=== PATIENT | male | born 1995 | race Native Hawaiian/Other Pacific Islander ===

== ENCOUNTER 2018-07-01 11:28 | Emergency (ER) | payer OTHER ==
[~2018-07-01] VITALS: Ht 180.3 cm; Wt 74.8 kg
[2018-07-01 13:41] LABS: PLATELET COUNT 259 K/uL (142-355)
[2018-07-01 13:53] LABS: POTASSIUM 4.5 mmol/L (3.6-5.2)
[2018-07-01 21:31] VITALS: BP 119/62; TEMP 99.5
== END 2018-07-01 21:31 | disposition other institution (70) ==
LOC: ED 11:28
DX: R45.851 Suicidal ideations (principal); F19.10 Other psychoactive substance abuse, uncomplicated; F32.89 Other specified depressive episodes; Z04.6 Encounter for general psychiatric examination, requested by authority
CPT/HCPCS: 36415; 80053; 80307; 80320; 80329; 81000; 85027; 93005; 99285; J2060

== ENCOUNTER 2018-07-04 14:49 | Emergency (ER) | payer OTHER ==
[~2018-07-04] VITALS: Ht 180.3 cm; Wt 74.8 kg
[2018-07-04 15:53] LABS: PLATELET COUNT 259 K/uL (142-355)
[2018-07-04 16:01] LABS: POTASSIUM 4.5 mmol/L (3.6-5.2)
[2018-07-04] MEDS ORDERED: CEPH500C20 PO (17:49)
[2018-07-05 21:39] VITALS: TEMP 98.1
[2018-07-06 09:15] VITALS: BP 121/64
== END 2018-07-06 12:00 | disposition other institution (70) ==
LOC: ED 14:49
DX: R45.851 Suicidal ideations (principal)
CPT/HCPCS: 36415; 80053; 80307; 80320; 80329; 81000; 85027; 93005; 99285

== ENCOUNTER 2019-02-26 20:00 | Emergency (ER) | payer OTHER ==
[~2019-02-26] VITALS: Ht 180.3 cm; Wt 74.8 kg
[~2019-02-26 20:00] MED LIST: CEPH500C20 PO
[2019-02-26 23:05] VITALS: BP 105/65; TEMP 98.2
== END 2019-02-26 23:05 | disposition home or self-care (01) ==
LOC: ED 20:00
DX: J02.9 Acute pharyngitis, unspecified (principal)
CPT/HCPCS: 87651; 99283

== ENCOUNTER 2019-03-20 17:04 | Emergency (ER) | payer OTHER ==
[~2019-03-20] VITALS: Ht 175.3 cm; Wt 74.8 kg
[2019-03-20 17:10] VITALS: BP 123/82; TEMP 98.1
== END 2019-03-20 18:06 | disposition home or self-care (01) ==
LOC: ED 17:04
DX: Z91.018 Allergy to other foods (principal)
CPT/HCPCS: 99282

== ENCOUNTER 2021-05-26 16:37 | Emergency (ER) | payer OTHER ==
[~2021-05-26] VITALS: Ht 175.3 cm; Wt 87.1 kg
[2021-05-26 19:47] LABS: PLATELET COUNT 196 K/uL (142-355)
[2021-05-26 19:54] LABS: POTASSIUM 3.8 mmol/L (3.6-5.2)
[2021-05-26 21:15] VITALS: BP 129/75; TEMP 97.8
== END 2021-05-26 21:15 | disposition home or self-care (01) ==
LOC: ED 16:37
PROVIDERS: Emergency Medicine Emergency Medical Services
DX: J20.9 Acute bronchitis, unspecified (principal); R09.1 Pleurisy; U07.1 COVID-19
CPT/HCPCS: 36415; 80048; 85027; 85379; 87040; 87502; 87635; 87651; 96360; 96365; 99284; J0696; U0003

== ENCOUNTER 2022-09-03 17:29 | Emergency (ER) | payer OTHER ==
[~2022-09-03] VITALS: Ht 180.3 cm; Wt 83.9 kg
[~2022-09-03 17:29] MED LIST changes: +Z-PAK PO
[2022-09-03 17:40] VITALS: TEMP 98
[2022-09-03 18:29] VITALS: BP 115/54
[2022-09-03 19:15] LABS: PLATELET COUNT 305 K/uL (142-355)
[2022-09-03 19:24] LABS: POTASSIUM 4.4 mmol/L (3.6-5.2)
== END 2022-09-03 18:32 | disposition home or self-care (01) ==
LOC: ED 17:29
PROVIDERS: Emergency Medicine
DX: F41.8 Other specified anxiety disorders (principal); R07.89 Other chest pain
CPT/HCPCS: 80053; 80307; 81002; 85027; 93005; 99283